=== PATIENT | male | born 1940 | race Caucasian/White ===

== ENCOUNTER → 2017-01-24 | Day surgery (SDC) | payer MEDICARE ==
[~2017-01-24] VITALS: Ht 182.9 cm; Wt 95.2 kg
[2017-01-24 08:09] LABS: INR 1.33 (0.9-1.2); PTT 34.3 SECONDS (23.2-31.4)
[2017-01-24 08:14] LABS: POTASSIUM 4.3 mmol/L (3.5-5.1)
[2017-01-24 08:32] LABS: CREATININE 1.6 mg/dL (0.7-1.2)
== END | disposition home or self-care (01) ==
LOC: FAS 07:31
PROVIDERS: Anesthesiology; Surgery
DX: K29.50 Unspecified chronic gastritis without bleeding (principal); I12.9 Hypertensive chronic kidney disease with stage 1 through stage 4 chronic kidney disease, or unspecified chronic kidney disease; E11.22 Type 2 diabetes mellitus with diabetic chronic kidney disease; N18.9 Chronic kidney disease, unspecified; I48.91 Unspecified atrial fibrillation; I71.4 Abdominal aortic aneurysm, without rupture; M10.9 Gout, unspecified; Z88.1 Allergy status to other antibiotic agents; Z95.0 Presence of cardiac pacemaker; Z80.51 Family history of malignant neoplasm of kidney; Z80.1 Family history of malignant neoplasm of trachea, bronchus and lung; Z80.8 Family history of malignant neoplasm of other organs or systems; Z79.84 Long term (current) use of oral hypoglycemic drugs; Z79.82 Long term (current) use of aspirin; Z79.899 Other long term (current) drug therapy; Z98.890 Other specified postprocedural states
CPT/HCPCS: 36415; 80048; 85610; 85730; 88305; J2704

== ENCOUNTER → 2021-07-12 | Day surgery (SDC) | payer MEDICARE ==
[~2021-07-12] VITALS: Ht 182.9 cm; Wt 88.0 kg
[~2021-07-12] MED LIST: ALLOPURINOL100 MG PO; ALTACE10 MG PO; COREG12.5 MG PO; GLIMEPIRIDE1 MG PO; IRON325 M1 PO; KENALOG; LASIX40 MG PO; LIPITOR20 MG PO; VIT C PO; VITAMIN D325 MC2 PO; WARFARIN SODIU7.5 MG PO; WARFARIN SODIUM5 MG PO
[2021-07-12 08:10] LABS: HCT 30.6 % (42.0-52.0); HGB 9.9 g/dl (13.2-18.0); MCH 30.6 pg (25.0-31.0); MCHC 32.4 g/dL (32.0-36.0); MCV 94.4 fL (78.0-100.0); MPV 10.4 fL (6.0-9.5); RBC 3.24 M/uL (4.70-6.00); RDW 16.5 % (11.5-14.0); WBC 5.4 K/uL (4.0-10.5)
[2021-07-12 08:33] LABS: INR 1.63 (0.9-1.2); PROTHROMBIN TIME 18.6 SECONDS (11.8-13.4)
[2021-07-12 08:36] LABS: ALBUMIN 3.8 g/dL (3.4-5.0); BILIRUBIN - TOTAL 1.3 mg/dL (0.2-1.0); CREATININE 2.17 mg/dL (0.67-1.17); GLOBULIN (CALCULATION) 4.1 g/dL; POTASSIUM 4.7 mmol/L (3.5-5.1); TOTAL PROTEIN 7.9 g/dL (6.4-8.2)
== END | disposition home or self-care (01) ==
LOC: FAS 07:34
PROVIDERS: Surgery
DX: D64.9 Anemia, unspecified (principal); D69.6 Thrombocytopenia, unspecified; C88.0 Waldenstrom macroglobulinemia; I48.91 Unspecified atrial fibrillation; Z95.2 Presence of prosthetic heart valve; N18.9 Chronic kidney disease, unspecified; Z95.0 Presence of cardiac pacemaker; I09.9 Rheumatic heart disease, unspecified; M10.9 Gout, unspecified; Z79.01 Long term (current) use of anticoagulants; Z79.82 Long term (current) use of aspirin; Z79.899 Other long term (current) drug therapy; Z20.822 Contact with and (suspected) exposure to COVID-19
CPT/HCPCS: 36415; 80053; 85610; J1644; J2704; J7120